=== PATIENT | female | born 1990 | race Caucasian/White ===

== ENCOUNTER 2017-03-25 04:47 | Emergency (ER) | payer BC, OTHER ==
[2017-03-25] MEDS ORDERED: 0.9 % SODIUM CHLORIDE 1,000 ML BAG IV ONE ×2 (05:13→05:53)
--- NOTE | 2017-03-25 05:13 | Emergency Department Record ---
History of Present Illness - General Source: Patient, Family Mode of Arrival: Ambulatory - History of Present Illness Initial comments: The patient states she had lower abdominal discomfort all day yesterday, . Last night around 10:30 she began cramping and spotting/vaginal bleeding. At 4:30a.m. she has a gush of blood and passed tissue on her menstrual pad which she brought here . She is [id number] Dec 27, 2016. She states she had an ultrasound which she thought put her at 12 weeks , but what she passed looked much younger than 12 weeks. She brought the tissue/products of conception in with her. She states she is bleeding now but much less so than when she gushed the blood and tissue. She is having slight cramping "but it is subsiding." She came here with her mother in law. Her works out of town and is currently gone. Complaint: Vaginal bleeding, Other (miscarriage.) Onset/Timin -: Hour(s) Location: Abdomen Radiation: None Severity: Mild Quality: Cramping Consistency: Constant Improves with: None Worsens with: None Associated symptoms: Denies other symptoms Vaginal bleeding: Heavy Number of weeks : 12 Pre-marco a care: None - Related Data : 1 Para: 0 Ab: 1 <CÉSAR CURTIS - Last Filed: 03/25/17 05:03> <Karolina Garcia - Last Filed: 03/25/17 08:28> - General Chief complaint: complication Stated complaint: MISCARRIAGE Time Seen by Provider: 03/25/17 05:03 - Related Data Home Medications Medication Instructions Recorded Confirmed Last Taken No Home Med [NO HOME MEDS] 03/25/17 03/25/17 Unknown Allergies Allergy/AdvReac Type Severity Reaction Status Date / Time No Known Drug Allergies Allergy Verified 03/25/17 05:02 Review of Systems Reviewed: No additional complaints except as noted below Constitutional: Reports: As per HPI. Denies: Chills, Fever, Malaise, Night sweats, Weakness, Weight change Eyes: Reports: As per HPI. Denies: Eye discharge, Eye pain, Photophobia, Vision change ENT: Reports: As per HPI. Denies: Congestion, Dental pain, Ear pain, Epistaxis , Hearing loss, Throat pain Respiratory: Reports: As per HPI. Denies: Cough, Dyspnea, Hemoptysis, Stridor, Wheezes Cardiovascular: Reports: As per HPI. Denies: Arrhythmia, Chest pain, Dyspnea on exertion, Edema, Murmurs, Orthopnea, Palpitations, Paroxysmal nocturnal dyspnea, Rheumatic Fever, Syncope Endocrine: Reports: As per HPI. Denies: Fatigue, Heat or cold intolerance, Polydipsia, Polyuria Gastrointestinal: Reports: As per HPI. Denies: Abdominal pain, Constipation, Diarrhea, Hematemesis, Hematochezia, Melena, Nausea, Vomiting Genitourinary: Reports: As per HPI. Denies: Abnormal menses, Discharge, Dyspareunia, Dysuria, Frequency, Hematuria, Incontinence, Retention, Urgency Musculoskeletal: Reports: As per HPI. Denies: Arthralgia, Back pain, Gout, Joint swelling, Myalgia, Neck pain Skin: Reports: As per HPI. Denies: Bruising, Change in color, Change in hair/ nails, Lesions, Pruritus, Rash Neurological: Reports: As per HPI. Denies: Abnormal gait, Confusion, Headache, Numbness, Paresthesias, Seizure, Tingling, Tremors, Vertigo, Weakness Psychiatric: Reports: As per HPI. Denies: Anxiety, Auditory hallucinations, Depression, Homicidal thoughts, Suicidal thoughts, Visual hallucinations Hematological/Lymphatic: Reports: As per HPI. 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 : 1 Para: 0 A: 1 - RESPIRATORY Hx Respiratory Disorders: No - CARDIOVASCULAR Hx Cardio Disorders: No - NEURO Hx Neuro Disorders: No - GI Hx GI Disorders: No - Hx Genitourinary Disorders: No - ENDOCRINE Hx Endocrine Disorders: No - HEMATOLOGY/ONCOLOGY Hx Hematology/Oncology Disorders: No <CÉSAR CURTIS - Last Filed: 03/25/17 05:03> Family Medical History Any Significant Family History?: Yes Family Hx Comment (NOT TO BE USED IN PLACE OF ITEMS BELOW): mother-2 miscarriages <CÉSAR CURTIS Last Filed: 03/25/17 05:03> Physical Exam - General General Appearance: Alert, Oriented x3, Cooperative, Mild distress, Other ( tearful) - Head Head exam: Normal inspection - Eye Eye exam: Normal appearance, PERRL Pupils: Normal accommodation - ENT ENT exam: Normal exam, Mucous membranes moist, Normal external ear exam, Normal orophraynx, TM's normal bilaterally Ear exam: Normal external inspection. negative: External canal tenderness Nasal Exam: Normal inspection. negative: Discharge, Sinus tenderness Mouth exam: Normal external inspection, Tongue normal Teeth exam: Normal inspection. negative: Dental caries Throat exam: Normal inspection. negative: Tonsillar erythema, Tonsillar exudate - Neck Neck exam: Normal inspection, Full ROM. negative: Tenderness - Respiratory Respiratory exam: Normal lung sounds bilaterally. negative: Respiratory distress - Cardiovascular Cardiovascular Exam: Regular rate, Normal rhythm, Normal heart sounds - GI/Abdominal GI/Abdominal exam: Soft, Normal bowel sounds, Tenderness (suprapubic and bilateral lower mild tenderness on palpation). negative: Distended, Guarding - Rectal Rectal exam: Deferred - exam: Other (Pelvic exam: vault filled with blood and clots multiple times, os open with products of conception passing with clots. Vault cleared, products of conception removed, and bleeding greatly diminished. Products of conception sent to lab.) - Extremities Extremities exam: Normal inspection, Full ROM, Normal capillary refill. negative: Calf tenderness, Pedal edema, Tenderness - Back Back exam: Reports: Normal inspection, Full ROM. Denies: Muscle spasm, Rash noted, Tenderness - Neurological Neurological exam: Alert, Normal gait, Oriented X3, Reflexes normal - Psychiatric Psychiatric exam: Normal affect, Normal mood - Skin Skin exam: Dry, Intact, Normal color, Warm <SHUKRIBOCÉSAR Betancourt - Last Filed: 03/25/17 05:03> Course Vital Signs 03/25/17 04:49 Temperature 97.9 F Pulse Rate 100 H Respiratory 22 Rate Blood Pressure 149/113 Pulse Ox 100 - Reevaluation(s) Reevaluation #1: Discussed case with Dr. Lyons who suggests we observe her for an hour and discharge home if not bleeding more than one fully soaked pad per hour for 2 consecutive hours. She has an appointment this morning at 10:15 and is urged to keep that appointment. Patient states her discomfort is a 1-2. Tylenol ordered. 03/25/17 06:15 03/25/17 06:29 Reevaluation #2: Lab reports patient is Rh positive. <CÉSAR CURTIS - Last Filed: 03/25/17 05:03> Vital Signs 03/25/17 03/25/17 03/25/17 04:49 06:18 06:59 Temperature 97.9 F Pulse Rate 100 H Pulse Rate [ 72 80 Pulse Ox Probe] Respiratory 22 22 24 Rate Blood Pressure 149/113 Blood Pressure 125/79 125/77 [Left Arm] Pulse Ox 100 100 100 - Reevaluation(s) Reevaluation #1: 03/25/17 08:17 pt has not filled a pad. <Karolina Garcia - Last Filed: 03/25/17 08:28> Medical Decision Making - Management Options MDM Management: No Additional Work-up Planned (Follow up this morning as previously arranged with your OB physician.) - Data Complexity MDM Data: Labs Ordered and/or Reviewed - Lab Data Result diagrams: 03/25/17 05:15 03/25/17 05:15 <CÉSAR CURTIS - Last Filed: 03/25/17 05:03> - Lab Data Result diagrams: 03/25/17 05:15 03/25/17 05:15 Lab Results 03/25/17 03/25/17 03/25/17 Range/Units 05:13 05:15 05:15 WBC 16.8 H (4.2-12.2) K/uL RBC 4.40 (3.80-5.40) M/uL Hgb 13.5 (11.6-16.0) gm/dl Hct 40.4 (35.0-47.0) % MCV 91.8 (81-97) fl MCH 30.7 (27-33) pg MCHC 33.4 (32-36) g/dl RDW 12.8 (11.5-14.5) % Plt Count 306 (130-400) K/uL MPV 9.7 (7.4-10.4) fl Gran % 79.1 (47-80) % Lymphocytes % 15.2 L (16-45) % Monocytes % 4.9 (0-9) % Eosinophils % 0.4 (0-6) % Basophils % 0.4 (0-6) % PT (9.5-12.1) SECONDS INR APTT (24.5-39.1) SECONDS Sodium (136-145) mmol/L Potassium (3.4-4.5) mmol/L Chloride (98-107) mmol/L Carbon Dioxide (22-29) mmol/L Anion Gap (7-16) BUN (6-20) mg/dL Creatinine (0.5-0.9) mg/dL Estimated GFR mL/min Random Glucose (74-109) mg/dL Calcium (8.6-10.0) mg/dL Total Bilirubin (0.2-1.0) mg/dL AST (10.0-35.0) U/L ALT (<33) U/L Alkaline Phosphatase (35-104) U/L Total Protein (6.6-8.7) g/dL Albumin (4.0-5.0) g/dL Globulin (1.4-4.8) gm/dL Albumin/Globulin Ratio (1.1-1.8) Total Beta HCG mIU/mL Urine HCG, Qual Cancelled ABO Group A Rh Factor Positive Antibody Screen Negative (NEGATIVE) 03/25/17 03/25/17 Range/Units 05:15 05:15 WBC (4.2-12.2) K/uL RBC (3.80-5.40) M/uL Hgb (11.6-16.0) gm/dl Hct (35.0-47.0) % MCV (81-97) fl MCH (27-33) pg MCHC (32-36) g/dl RDW (11.5-14.5) % Plt Count (130-400) K/uL MPV (7.4-10.4) fl Gran % (47-80) % Lymphocytes % (16-45) % Monocytes % (0-9) % Eosinophils % (0-6) % Basophils % (0-6) % PT 11.9 (9.5-12.1) SECONDS INR 1.10 APTT 22.20 L (24.5-39.1) SECONDS Sodium 139 (136-145) mmol/L Potassium 3.6 (3.4-4.5) mmol/L Chloride 100 (98-107) mmol/L Carbon Dioxide 25.0 (22-29) mmol/L Anion Gap 14.0 (7-16) BUN 9 (6-20) mg/dL Creatinine 0.6 (0.5-0.9) mg/dL Estimated GFR > 60 mL/min Random Glucose 158 H (74-109) mg/dL Calcium 9.0 (8.6-10.0) mg/dL Total Bilirubin 0.20 (0.2-1.0) mg/dL AST 16 (10.0-35.0) U/L ALT 15 (<33) U/L Alkaline Phosphatase 53 (35-104) U/L Total Protein 6.8 (6.6-8.7) g/dL Albumin 4.1 (4.0-5.0) g/dL Globulin 2.7 (1.4-4.8) gm/dL Albumin/Globulin Ratio 1.5 (1.1-1.8) Total Beta HCG 2868 mIU/mL Urine HCG, Qual ABO Group Rh Factor Antibody Screen (NEGATIVE) <Karolina Garcia - Last Filed: 03/25/17 08:28> Disposition <CÉSAR CURTIS - Last Filed: 03/25/17 05:03> Disposition: Discharge <Karolina Garcia - Last Filed: 03/25/17 08:28> Clinical Impression: Miscarriage Disposition: Home, Self-Care Condition: (1) Good Instructions: Miscarriage (ED) Additional Instructions: Home with mother in law. Rest, push fluids. Tylenol as directed as needed for pain. Follow up with Ob at 10:15 this morning as previously arranged. Quality - Quality Measures Quality Measures: N/A - Blood Pressure Screening Does Patient Have Any of the Following: No Blood Pressure Classification: Hypertensive Reading Systolic Measurement: 149 Diastolic Measurement: 113 Pre-Hypertensive Follow-up Interventions: Follow-up with rescreen every year. <CÉSAR CURTIS - Last Filed: 03/25/17 05:03> - Blood Pressure Screening Does Patient Have Any of the Following: No Blood Pressure Classification: Hypertensive Reading Systolic Measurement: 149 Diastolic Measurement: 113 Screening for High Blood Pressure: < First Hypertensive BP, F/U Documented > [ [id number]] First Hypertensive Follow-up Interventions: Follow-up with rescreen GT 1 day and LT 4 weeks. <Karolina Garcia - Last Filed: 03/25/17 08:28>
[2017-03-25 05:22] LABS: BASO % 0.4 % (0-6); EOS % 0.4 % (0-6); GRAN % 79.1 % (47-80); HEMATOCRIT 40.4 % (35.0-47.0); HEMOGLOBIN 13.5 gm/dl (11.6-16.0); LYMPH % 15.2 % (16-45); MEAN CELL VOLUME 91.8 fl (81-97); MEAN CORPUSCULAR HEMOGLOBIN 30.7 pg (27-33); MEAN CORPUSCULAR HGB CONC 33.4 g/dl (32-36); MEAN PLATELET VOLUME 9.7 fl (7.4-10.4); MONO % 4.9 % (0-9); PLATELET COUNT 306 K/uL (130-400); RED CELL DISTRIBUTION WIDTH 12.8 % (11.5-14.5); WHITE BLOOD COUNT W/O DIFF 16.8 K/uL (4.2-12.2)
[2017-03-25 05:33] LABS: INR 1.1; PARTIAL THROMBOPLASTIN TIME 22.2 SECONDS (24.5-39.1); PROTHROMBIN TIME (PATIENT) 11.9 SECONDS (9.5-12.1)
[2017-03-25 05:38] LABS: TOTAL B-hCG 2868 mIU/mL
[2017-03-25 05:43] LABS: BLOOD UREA NITROGEN 9 mg/dL (6-20); CREATININE 0.6 mg/dL (0.5-0.9); EST GLOMERULAR FILTRATION RATE > 60 mL/min
[2017-03-25 05:44] LABS: TOTAL PROTEIN 6.8 g/dL (6.6-8.7)
[2017-03-25 05:46] LABS: GLUCOSE,RANDOM 158 mg/dL (74-109)
[2017-03-25 05:49] LABS: ALB/GLOB RATIO 1.5 (1.1-1.8); ALBUMIN 4.1 g/dL (4.0-5.0); ALKALINE PHOSPHATASE 53 U/L (35-104); ALT/SGPT 15 U/L (<33); AST/SGOT 16 U/L (10.0-35.0)
[2017-03-25] MEDS ORDERED: HYDROMORPHONE HCL 1 MG/ML SYRINGE IVP ONE (05:53)
[2017-03-25 06:02] LABS: ABO GROUP A; ANTIBODY SCREEN NEGATIVE (NEGATIVE); RH TYPE POSITIVE
[2017-03-25] MEDS ORDERED: ACETAMINOPHEN 325 MG TAB PO ONE (06:15)
== END 2017-03-25 08:36 | disposition home or self-care (01) ==
LOC: ER 04:47
DX: O03.9 Complete or unspecified spontaneous abortion without complication (principal)
CPT/HCPCS: 80053; 84702; 85025; 85610; 85730; 86850; 86900; 86901; 99284